=== PATIENT | female | born 1990 | race Caucasian/White ===

== ENCOUNTER 2016-03-27 17:16 | Emergency (ER) | payer BC ==
[2016-03-27 17:25] VITALS: BP 122/73
--- NOTE | 2016-03-27 17:29 | ERNOTE ---
ENT HPI Date of Service: 03/27/16 Presenting Symptoms: dental pain, other - Ear pain Time Seen by Provider: 03/27/16 17:27 Source: patient, RN notes reviewed Exam Limitations: no limitations - Immun/Allergies/Home Medications Immunizations: IMMUNIZATION HX Immunizations Up to Date Yes History of Influenza Vaccine No Hx Pneumococcal Vaccination No Allergies/Adverse Reactions: Allergies Allergy/AdvReac Type Severity Reaction Status Date / Time acetaminophen [From Vicodin] AdvReac Mild Vomiting Verified 03/27/16 17:24 hydrocodone bitartrate AdvReac Mild Vomiting Verified 03/27/16 17:24 [From Vicodin] Home Medications: HOME MEDICATIONS Escitalopram Oxalate [Lexapro] 10 mg PO DAILY 05/08/15 [Last Taken Unknown] Levothyroxine Sodium [Tirosint] 25 mcg PO DAILY 07/21/15 [Last Taken Unknown] ALPRAZolam [Xanax] 0.25 mg PO TID PRN 03/27/16 [Last Taken Unknown] Amox Tr/Potassium Clavulanate [Augmentin 875-125 Tablet] 875 mg PO Q12H #20 tab 03/27/16 [Last Taken Unknown] - History of Present Illness Narrative: Peri is a 25 year old female who presents to the ED for bilateral ear pain that has been worsening over the last several weeks. She also reports that she has 3 of her wisdom teeth coming in that are painful as well. She has been taking ibuprofen with some improvement. ENT Location: Present: ear (R), ear (L), dental, facial Prearrival Treatment: Present: over the counter meds Associated Symptoms - ENT: Reports: malaise, cough, sore throat, nasal congestion/drainage, facial pain/swelling, tooth pain, headache. Denies: poor fluid intake, poor solid intake, jaw swelling, change in hearing, ear drainage Review of Systems - Review of Systems Constitutional: Present: malaise. Absent: fever EYE: Present: no symptoms reported ENT: Present: See HPI Respiratory: Present: cough. Absent: shortness of breath, wheezing Cardiology: Present: no symptoms reported Gastrointestinal/Abdominal: Absent: nausea, vomiting Genitourinary: Present: no symptoms reported Musculoskeletal: Absent: muscle pain, neck pain Skin: Absent: rash, lesions, change in color Neurological: Present: headache. Absent: dizziness/light-headedness Endocrine: Present: no symptoms reported Hematologic/Lymphatic: Present: no symptoms reported Psych: Present: no symptoms reported - Patient's Past Medical History Patient History - Medical: Anxiety, Depression, Hypothyroidism Patient History - Cardiac/Respiratory: No pertinent hx Patient History - Cancer: No Hx of Cancer Patient History - Surgical Procedures: T & A, Other - Social History Living Situations: home Smoking Status: Current every day smoker Cigarettes Packs Per Day: 0.5 Have you smoked in the past 12 months: Yes Do you dip or chew tobacco: No Alcohol Use: occasionally Drug Use: none Physical Exam - Physical Exam General Appearance: Present: wd/wn, alert, no apparent distress Ears, Nose, Throat: Present: hearing grossly normal, nasal congestion, sinus pain/drainage, pharyngeal erythema - mild, other - TM's with clear fluid behind each, teeth 16, 17 and 32 partially protruding through gums. Absent: pharyngeal swelling Neck: Present: supple, full range of motion, lymphadenopathy (R), lymphadenopathy (L), tender lateral Respiratory: Present: no respiratory distress, normal breath sounds, no accessory muscle use, lungs clear Cardiovascular/Chest: Present: regular rate, rhythm, no murmur Neurological Exam: Present: alert, oriented, normal mood/affect, no motor/ sensory deficits Skin Exam: Present: normal color, warm/dry ED Progress - Vital Signs Patient's Vital Signs:: I have reviewed the patient's vital signs. Vital Signs: Vital Signs 03/27/16 17:21 Temperature 37.1 C Pulse Rate 99 Respiratory 14 Rate Blood Pressure 122/73 O2 Sat by Pulse 99 Oximetry - Progress/Reassessment Chief Complaint: Earache Progress:: Unchanged Departure Clinical Impression: Pain, dental, Acute otitis media with effusion of both ears Sinusitis, acute Qualifiers: Sinusitis location: unspecified location Recurrence: non-recurrent Qualified Code(s): J01.90 - Acute sinusitis, unspecified - Departure Disposition: Home Follow Up Needed Condition: Good Instructions: Sinusitis, Adult, [id number] Additional Instructions: Nasal saline spray for congestion Tylenol and/or ibuprofen for pain See a dentist YANN Referrals: Srinivas Card MD [Primary Care Provider] - Prescriptions: Amox Tr/Potassium Clavulanate [Augmentin 875-125 Tablet] 875 mg PO Q12H #20 tab
== END 2016-03-27 17:45 | disposition home or self-care (01) ==
LOC: ER 17:16
DX: H65.193 Other acute nonsuppurative otitis media, bilateral (principal); K08.89 Other specified disorders of teeth and supporting structures; J01.90 Acute sinusitis, unspecified; F17.210 Nicotine dependence, cigarettes, uncomplicated; F41.1 Generalized anxiety disorder; E03.9 Hypothyroidism, unspecified

== ENCOUNTER 2016-04-25 14:18 | Emergency (ER) | payer BC ==
[2016-04-25 14:37] VITALS: BP 118/73
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
== END 2016-04-25 15:38 | disposition home or self-care (01) ==
LOC: ER 14:18
DX: S86.912A Strain of unspecified muscle(s) and tendon(s) at lower leg level, left leg, initial encounter (principal); V39.3XXA Occupant (driver) (passenger) of three-wheeled motor vehicle injured in unspecified nontraffic accident, initial encounter; F17.210 Nicotine dependence, cigarettes, uncomplicated; E03.9 Hypothyroidism, unspecified; F41.9 Anxiety disorder, unspecified

== ENCOUNTER 2016-07-04 12:43 | Emergency (ER) | payer BC ==
[2016-07-04 13:09] LABS: Urine Bilirubin Negative (NEGATIVE); Urine Blood 250 /ul (NEGATIVE); Urine Ketone Negative (NEGATIVE); Urine Nitrite Negative (NEGATIVE); Urine Protein Negative (NEGATIVE); Urine Specific Gravity <=1.005 SP.GR. (1.005-1.010); Urine Urobilinogen Normal (NORMAL)
[2016-07-04 13:20] LABS: Urine Color Pale Yellow
[2016-07-04 13:21] LABS: Urine Appearance Cloudy; Urine Bacteria 1+; Urine RBC 25-50 /hpf (0-5); Urine WBC >50 /hpf (0-5)
[2016-07-04] MEDS ORDERED: LIDOCAINE HCL 20 ML VIAL ONE (13:55)
--- NOTE | 2016-07-04 13:55 | ERNOTE ---
ER Female HPI Date of Service: 07/04/16 Stated Complaint: BLOOD IN URINE, PAINFUL URINATION Time Seen by Provider: 07/04/16 13:13 Source: patient Exam Limitations: no limitations Immunizations: IMMUNIZATION HX Immunizations Up to Date Yes History of Influenza Vaccine No Hx Pneumococcal Vaccination No Allergies/Adverse Reactions: Allergies acetaminophen [From Vicodin] Adverse Reaction (Mild, Verified 07/04/16 12:54) Vomiting hydrocodone bitartrate [From Vicodin] Adverse Reaction (Mild, Verified 07/04/16 12:54) Vomiting Home Medications: HOME MEDICATIONS Levothyroxine Sodium [Tirosint] 25 mcg PO DAILY 07/21/15 [Last Taken Unknown] ALPRAZolam [Xanax] 0.25 mg PO TID PRN 03/27/16 [Last Taken Unknown] Ibuprofen [Motrin] 600 mg PO Q6H PRN #40 tab 04/25/16 [Last Taken Unknown] Cephalexin [Keflex] 500 mg PO Q6H #40 capsule 07/04/16 [Last Taken Unknown] - History of Present Illness Narrative: Patient comes due to supra pubic, hematuria, and dysuria. Timing: Present: constant Quality: Present: mild Onset Location: Present: suprapubic Radiation: Present: none Activities at Onset: Present: none Prior Abdominal Problems: Present: similar symptoms. Absent: recent trauma Modifying Factors - (Improves): Present: other - nothing Modifying Factors - (Worsens): Present: movement, palpation Associated Symptoms: Present: abdominal pain - supra pubic, dysuria, urinary frequency, other - hematuria. Absent: fever/chills, diaphoresis, nausea, vomiting, polyuria, loss of bladder control, low back pain, mass, nocturia Prior Treatment: Present: recently seen - patient was seen by PCP and found with no UTI. Review of Systems - Review of Systems Constitutional: Absent: fever, chills, diaphoresis, weakness, fatigue, malaise EYE: Present: no symptoms reported ENT: Present: no symptoms reported Respiratory: Absent: shortness of breath, cough, wheezing Cardiology: Present: no symptoms reported Gastrointestinal/Abdominal: Absent: nausea, vomiting, diarrhea, constipation, abdominal pain - supra pubic Genitourinary: Present: frequency, dysuria, hematuria. Absent: discharge Musculoskeletal: Present: no symptoms reported Skin: Present: no symptoms reported Neurological: Present: no symptoms reported Endocrine: Present: no symptoms reported Hematologic/Lymphatic: Present: no symptoms reported Psych: Present: no symptoms reported All Other Systems: All systems neg except as marked - Patient's Past Medical History Patient History - Medical: Anxiety, Depression, Hypothyroidism Patient History - Cardiac/Respiratory: Asthma Patient History - Cancer: No Hx of Cancer Patient History - Surgical Procedures: T & A, Other Patient History - Other: None LMP (females 10-50): last week LMP (Calendar): 09/20/14 - Social History Living Situations: home Abuse History: No History of abuse Psych History: Hx of Anxiety Smoking Status: Current every day smoker Alcohol Use: occasionally Drug Use: none - Immunizations Immunizations Up to Date: Yes Hx Pneumococcal Vaccination: No History of Influenza Vaccine: No Physical Exam - Physical Exam General Appearance: Present: wd/wn, alert, no apparent distress Eye Exam: Normal inspection: bilateral, PERRL: bilateral, EOMI: bilateral Ears, Nose, Throat: Present: normal ENT inspection, normal pharynx. Absent: dry mucous membranes Neck: Present: normal inspection, nontender Respiratory: Present: no respiratory distress, normal breath sounds, no accessory muscle use, chest nontender, lungs clear Cardiovascular/Chest: Present: regular rate, rhythm, no murmur, normal peripheral pulses Gastrointestinal/Abdominal: Present: normal bowel sounds, nondistended, soft, no organomegaly, tenderness - supra pubic. Absent: guarding, rebound Rectal Exam: Present: nontender, normal rectal tone Back Exam: Present: normal inspection, normal range of motion, no CVA tenderness , no vertebral tenderness Extremity Exam: Present: normal inspection, non-tender, normal range of motion, no edema Neurological Exam: Present: alert, oriented, normal mood/affect, no motor/ sensory deficits Skin Exam: Present: normal color, warm/dry Lymphatic Exam: Present: no adenopathy Pelvic Exam: Present: active bleeding ED Progress - Date and Time Seen: Date and Time: 07/04/16 14:04 Patient will be given Tx for UTI. - Results and Orders Patient's Lab Results:: I have reviewed the patient's lab results. Results and Orders: UA: Positive - Vital Signs Patient's Vital Signs:: I have reviewed the patient's vital signs. Vital Signs: Vital Signs 07/04/16 12:51 Temperature 36.7 C Pulse Rate 101 H Respiratory 16 Rate Blood Pressure 116/65 O2 Sat by Pulse 98 Oximetry - CT/Ultrasound CT/Ultrasound Narrative: US: No gross pathology reported by Radiologist on report. - Progress/Reassessment Chief Complaint: Genitourinary Problem - Transfer of Care Expected Disposition: Discharge Plan - Plan Plan: Patient is to follow up with PCP Departure Clinical Impression: UTI (urinary tract infection) Qualifiers: Urinary tract infection type: acute cystitis Hematuria presence: with hematuria Qualified Code(s): N30.01 - Acute cystitis with hematuria - Departure Disposition: Home self-care Condition: Stable Instructions: Urinary Tract Infection, Adult, [id number] Referrals: Srinivas Card MD [Primary Care Provider] - Prescriptions: Cephalexin [Keflex] 500 mg PO Q6H #40 capsule
[2016-07-04 15:22] VITALS: BP 115/64
== END 2016-07-04 14:30 | disposition home or self-care (01) ==
LOC: ER 12:43
DX: N30.01 Acute cystitis with hematuria (principal); F17.210 Nicotine dependence, cigarettes, uncomplicated; E03.9 Hypothyroidism, unspecified; F41.9 Anxiety disorder, unspecified

== ENCOUNTER 2017-03-27 09:23 | Emergency (ER) | payer BC ==
[2017-03-27 11:00] VITALS: BP 114/90
[2017-03-27] MEDS ORDERED: IBUPROFEN 600 MG TABLET PO ONE (11:23)
[2017-03-27] MEDS ORDERED: IBUPROFEN 600 MG TABLET ONE (11:25)
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
== END 2017-03-27 12:15 | disposition home or self-care (01) ==
LOC: ER 09:23
PROC: 2W3CX1Z Immobilization of Right Lower Arm using Splint (ICD-10-PCS; principal; 2017-03-27)
DX: E03.9 Hypothyroidism, unspecified; W22.09XA Striking against other stationary object, initial encounter; S62.306A Unspecified fracture of fifth metacarpal bone, right hand, initial encounter for closed fracture; F41.9 Anxiety disorder, unspecified; T76.21XA Adult sexual abuse, suspected, initial encounter; F17.200 Nicotine dependence, unspecified, uncomplicated